=== PATIENT | male | born 1955 | race Two or more races ===

== ENCOUNTER 2024-03-24 11:35 | Emergency (ER) | payer OTHER ==
[~2024-03-24] VITALS: Ht 160 cm; Wt 68.0 kg
[2024-03-24 11:46] VITALS: TEMP 98.7
[2024-03-24 12:15] VITALS: BP 124/71; PULSE 72; RESP 19; O2SAT 98
[2024-03-24] MEDS: PERTUSS(ACELL),DIPH,TET/PF 0.5 ML SYRINGE [ADULT] IM. ONE (12:55)
== END 2024-03-24 13:18 | disposition home or self-care (01) ==
LOC: EMS 11:41
DX: S81.811A Laceration without foreign body, right lower leg, initial encounter (principal); Z23 Encounter for immunization; W26.8XXA Contact with other sharp object(s), not elsewhere classified, initial encounter; Y93.89 Activity, other specified; Y92.89 Other specified places as the place of occurrence of the external cause; Y99.0 Civilian activity done for income or pay
CPT/HCPCS: 12001; 90471; 90715; 99283